=== PATIENT | female | born 1945 | race Caucasian/White ===

== ENCOUNTER 2019-04-22 10:14 | Outpatient (REF) | payer MEDICARE, MEDICAID, SELFPAY ==
[2019-04-22 22:28] LABS: ALT 19 U/L (12-78); AST 14 U/L (15-37); Albumin 3.6 g/dL (3.4-5.0); Alkaline Phosphatase 92 U/L (46-116); Anion Gap 7.6 mmol/L (3-11); BUN 20 mg/dL (7-18); Bilirubin, Total 0.3 mg/dL (0.2-1.0); CO2 31.4 mmol/L (21.0-32.0); CREATININE 0.71 mg/dL (0.55-1.02); Calcium 9.2 mg/dL (8.5-10.1); Calculated LDL 205; Chloride 105 mmol/L (98-107); Cholesterol 281 mg/dL (50-200); Glucose 98 mg/dL (70-100); HDL Cholesterol 46 mg/dL (40-60); Potassium 4.2 mmol/L (3.5-5.1); Sodium 144 mmol/L (136-145); TSH (W/Ref FT4) 0.49 uIU/mL (0.358-3.74); Total Protein 6.9 g/dL (6.4-8.2); Triglyceride 154 mg/dL (30-150)
[2019-04-22 22:45] LABS: Hemoglobin A1C 6.2 % (4.5-6.2)
== END 2019-04-22 10:34 ==
LOC: NCHCN 10:14
PROVIDERS: PCP Family Medicine; Visit Provider Family Medicine
DX: E03.9 Hypothyroidism, unspecified (principal); R73.09 Other abnormal glucose; E78.2 Mixed hyperlipidemia
CPT/HCPCS: 80053; 80061; 83721; 83036; 84443

== ENCOUNTER 2019-09-30 10:34 | Outpatient (REF) | payer MEDICARE, MEDICAID, SELFPAY | END 2019-09-30 10:54 | LOC: NCHCN 10:34 | PROVIDERS: PCP Family Medicine; Visit Provider Nurse Practitioner Family | DX: L03.012 Cellulitis of left finger (principal) | CPT/HCPCS: 87077; 87070; 87186; 87205 ==

== ENCOUNTER 2020-04-20 21:28 | Outpatient (REF) | payer MEDICARE, MEDICAID, SELFPAY ==
[2020-04-20 22:09] LABS: ALT 22 U/L (14-59); AST 15 U/L (15-37); Albumin 3.9 g/dL (3.4-5.0); Alkaline Phosphatase 74 U/L (46-116); BUN 25 mg/dL (7-18); Bilirubin, Total 0.4 mg/dL (0.2-1.0); Calculated LDL 89 mg/dL (<100); Chloride 103 mmol/L (98-107); Cholesterol 160 mg/dL (<200); Glucose 90 mg/dL (74-106); HDL Cholesterol 48 mg/dL (40-60); Potassium 3.8 mmol/L (3.5-5.1); Sodium 138 mmol/L (136-145); TSH (W/Ref FT4) 0.19 uIU/mL (0.36-3.74); Total Protein 6.9 g/dL (6.4-8.2); Triglyceride 116 mg/dL (<150)
[2020-04-20 22:10] LABS: Hemoglobin A1C 6.1 % (3.8-5.6)
[2020-04-20 22:26] LABS: FREE T4 0.91 ng/dL (0.76-1.46)
== END 2020-04-20 21:48 ==
LOC: NCHCN 21:28
PROVIDERS: PCP Family Medicine; Visit Provider Family Medicine
DX: E03.9 Hypothyroidism, unspecified (principal); E78.2 Mixed hyperlipidemia; R73.03 Prediabetes
CPT/HCPCS: 80053; 80061; 83036; 84439; 84443

== ENCOUNTER 2020-04-26 14:03 | Outpatient (REF) | payer MEDICARE, MEDICAID, SELFPAY ==
[2020-04-26 21:54] LABS: T4 8.3 ug/mL (4.7-13.3); TSH 0.12 uIU/mL (0.36-3.74)
[2020-04-27 17:43] LABS: T3, Total 150 ng/dL (97-169)
[2020-04-28 09:51] LABS: Thyroglobulin Antibody <15 U/mL (<=60); Thyroperoxidase Antibody <28 U/mL (<=60)
== END 2020-04-26 14:23 ==
LOC: NCHCN 14:03
PROVIDERS: PCP Family Medicine; Visit Provider Family Medicine
DX: E05.90 Thyrotoxicosis, unspecified without thyrotoxic crisis or storm (principal)
CPT/HCPCS: 86376; 84436; 84443; 84480

== ENCOUNTER 2020-08-13 16:37 | Outpatient (REF) | payer MEDICARE, MEDICAID, SELFPAY ==
[2020-08-13 21:34] LABS: TSH (W/Ref FT4) 0.29 uIU/mL (0.36-3.74)
[2020-08-13 22:10] LABS: Hemoglobin A1C 5.9 % (<5.7)
[2020-08-13 22:17] LABS: FREE T4 0.91 ng/dL (0.76-1.46)
== END 2020-08-13 16:57 ==
LOC: NCHCN 16:37
PROVIDERS: PCP Family Medicine; Visit Provider Family Medicine
DX: E05.90 Thyrotoxicosis, unspecified without thyrotoxic crisis or storm (principal); R73.03 Prediabetes
CPT/HCPCS: 83036; 84439; 84443

== ENCOUNTER 2020-09-07 16:10 | Outpatient (REF) | payer MEDICARE, MEDICAID, SELFPAY ==
[2020-09-08 20:06] LABS: T3,Free 3.1 pg/mL (2.8-5.3)
[2020-09-09 13:36] LABS: Thyrotropin Receptor Ab <1.00 IU/L
== END 2020-09-07 16:30 ==
LOC: NCHCN 16:10
PROVIDERS: PCP Family Medicine; Visit Provider Family Medicine
DX: E05.90 Thyrotoxicosis, unspecified without thyrotoxic crisis or storm (principal)
CPT/HCPCS: 84235; 84481

== ENCOUNTER 2021-02-10 20:26 | Outpatient (REF) | payer MEDICARE, MEDICAID, SELFPAY ==
[2021-02-10 21:12] LABS: FREE T4 0.84 ng/dL (0.76-1.46); TSH 0.23 uIU/mL (0.36-3.74)
[2021-02-11 17:14] LABS: T3, Total 129 ng/dL (97-169)
[2021-02-22 15:38] LABS: Thyroid Stimulating Immunoglob <1.0 TSI index (<=1.3)
== END 2021-02-10 20:27 | disposition home or self-care (01) ==
LOC: NCHCN 20:26
PROVIDERS: PCP Family Medicine; Visit Provider Internal Medicine Endocrinology, Diabetes & Metabolism
DX: E05.90 Thyrotoxicosis, unspecified without thyrotoxic crisis or storm (principal)
CPT/HCPCS: 84439; 84443; 84445; 84480

== ENCOUNTER 2021-07-14 17:29 | Outpatient (REF) | payer MEDICARE, MEDICAID, SELFPAY ==
[2021-07-14 21:04] LABS: Hemoglobin A1C 6.2 % (<5.7)
[2021-07-14 21:05] LABS: ALT 23 U/L (14-59); AST 18 U/L (15-37); Albumin 4.1 g/dL (3.4-5.0); Alkaline Phosphatase 84 U/L (46-116); Anion Gap 8.4 mmol/L (3-11); BUN 19 mg/dL (7-18); Bilirubin, Total 0.3 mg/dL (0.2-1.0); CO2 28.6 mmol/L (21.0-32.0); CREATININE 0.7 mg/dL (0.55-1.02); Calcium 9.5 mg/dL (8.5-10.1); Calculated LDL 109 mg/dL (<100); Chloride 105 mmol/L (98-107); Cholesterol 181 mg/dL (<200); Glucose 87 mg/dL (74-106); HDL Cholesterol 49 mg/dL (40-60); Potassium 4.5 mmol/L (3.5-5.1); Sodium 142 mmol/L (136-145); TSH (W/Ref FT4) 0.35 uIU/mL (0.36-3.74); Total Protein 7.1 g/dL (6.4-8.2); Triglyceride 119 mg/dL (<150)
== END 2021-07-14 17:30 | disposition home or self-care (01) ==
LOC: NCHCN 17:29
PROVIDERS: PCP Family Medicine; Visit Provider Family Medicine
DX: Z00.00 Encounter for general adult medical examination without abnormal findings (principal); E05.90 Thyrotoxicosis, unspecified without thyrotoxic crisis or storm; R73.03 Prediabetes; E78.2 Mixed hyperlipidemia
CPT/HCPCS: 80053; 80061; 83036; 84439; 84443

== ENCOUNTER 2022-09-05 18:11 | Outpatient (REF) | payer MEDICARE, MEDICAID, SELFPAY ==
[2022-09-05 20:15] LABS: Hemoglobin A1C 6.3 % (<5.7)
[2022-09-05 20:24] LABS: ALT 29 U/L (14-59); AST 20 U/L (15-37); Albumin 3.8 g/dL (3.4-5.0); Alkaline Phosphatase 77 U/L (46-116); BUN 21 mg/dL (7-18); Bilirubin, Total 0.3 mg/dL (0.2-1.0); CREATININE 0.6 mg/dL (0.55-1.02); Calcium 9.2 mg/dL (8.5-10.1); Calculated LDL 115 mg/dL (<100); Chloride 105 mmol/L (98-107); Cholesterol 200 mg/dL (<200); Estimated GFR 92.39 (mL/min/1.73m2); Glucose 83 mg/dL (74-106); HDL Cholesterol 60 mg/dL (40-60); Potassium 3.8 mmol/L (3.5-5.1); Sodium 141 mmol/L (136-145); Total Protein 7.3 g/dL (6.4-8.2); Triglyceride 128 mg/dL (<150)
== END 2022-09-05 18:12 | disposition home or self-care (01) ==
LOC: NCHCN 18:11
PROVIDERS: PCP Family Medicine; Visit Provider Family Medicine
DX: R73.03 Prediabetes (principal); E78.2 Mixed hyperlipidemia
CPT/HCPCS: 80053; 80061; 83036

== ENCOUNTER 2023-09-12 19:17 | Outpatient (REF) | payer MEDICARE, MEDICAID, SELFPAY ==
[2023-09-12 19:31] LABS: ALT 19 U/L (14-59); AST 15 U/L (15-37); Albumin 3.7 g/dL (3.4-5.0); Alkaline Phosphatase 76 U/L (46-116); Anion Gap 8.1 mmol/L (3-11); BUN 21 mg/dL (7-18); Bilirubin, Total 0.2 mg/dL (0.2-1.0); CO2 28.9 mmol/L (21.0-32.0); CREATININE 0.9 mg/dL (0.55-1.02); Calcium 9.2 mg/dL (8.5-10.1); Calculated LDL 122 mg/dL (<100); Chloride 104 mmol/L (98-107); Cholesterol 184 mg/dL (<200); Estimated GFR 65.44 (mL/min/1.73m2); Glucose 115 mg/dL (74-106); HDL Cholesterol 49 mg/dL (40-60); Potassium 3.9 mmol/L (3.5-5.1); Sodium 141 mmol/L (136-145); TSH (W/Ref FT4) 0.74 uIU/mL (0.36-3.74); Total Protein 6.8 g/dL (6.4-8.2); Triglyceride 68 mg/dL (<150)
[2023-09-12 20:05] LABS: Hemoglobin A1C 5.9 % (<5.7)
== END 2023-09-12 19:18 | disposition home or self-care (01) ==
LOC: NCHCN 19:17
PROVIDERS: PCP Family Medicine; Visit Provider Family Medicine
DX: E05.90 Thyrotoxicosis, unspecified without thyrotoxic crisis or storm (principal); R73.03 Prediabetes; E78.2 Mixed hyperlipidemia
CPT/HCPCS: 80053; 80061; 83036; 84443

== ENCOUNTER 2024-10-02 15:09 | Outpatient (REF) | payer MEDICARE, MEDICAID, SELFPAY ==
[2024-10-02 15:39] LABS: ALT 19 U/L (14-59); AST 16 U/L (15-37); Albumin 3.7 g/dL (3.4-5.0); Alkaline Phosphatase 61 U/L (46-116); Anion Gap 7.3 mmol/L (3-11); BUN 19 mg/dL (7-18); CO2 31.7 mmol/L (21.0-32.0); CREATININE 0.8 mg/dL (0.55-1.02); Calcium 9.7 mg/dL (8.5-10.1); Calculated LDL 141 mg/dL (<100); Chloride 106 mmol/L (98-107); Cholesterol 219 mg/dL (<200); Glucose 88 mg/dL (74-106); HDL Cholesterol 59 mg/dL (40-60); Sodium 145 mmol/L (136-145); Total Protein 7.1 g/dL (6.4-8.2); Triglyceride 96 mg/dL (<150)
[2024-10-02 16:36] LABS: Hemoglobin A1C 6.1 % (<5.7)
== END 2024-10-02 15:10 | disposition home or self-care (01) ==
LOC: NCHCN 15:09
PROVIDERS: PCP Family Medicine; Visit Provider Family Medicine
DX: E78.2 Mixed hyperlipidemia (principal); R73.03 Prediabetes
CPT/HCPCS: 80053; 80061; 83036

== ENCOUNTER 2025-10-16 10:27 | Outpatient (REF) | payer MEDICARE, MEDICAID, SELFPAY ==
[2025-10-16 14:59] LABS: Hemoglobin A1C 6.0 % (<5.7)
[2025-10-16 15:01] LABS: ALT 15 U/L (10-49); AST 19 U/L (<34); Albumin 4.1 g/dL (3.2-5.0); Alkaline Phosphatase 53 U/L (46-116); Anion Gap 7.7 mmol/L (3-11); BUN 22 mg/dL (9-23); Bilirubin, Total 0.30 mg/dL (0.2-1.2); CO2 29.3 mmol/L (20.0-31.0); Calcium 8.7 mg/dL (8.3-10.6); Chloride 108 mmol/L (98-107); Cholesterol 165 mg/dL (<200); Glucose 85 mg/dL (74-106); HDL Cholesterol 48 mg/dL (>40); Potassium 3.7 mmol/L (3.5-5.1); Sodium 145 mmol/L (136-145); Total Protein 6.5 g/dL (5.7-8.2)
== END 2025-10-16 10:28 | disposition home or self-care (01) ==
LOC: NCHCN 10:27
PROVIDERS: PCP Family Medicine; Visit Provider Family Medicine
DX: E78.2 Mixed hyperlipidemia (principal); R73.03 Prediabetes
CPT/HCPCS: 80053; 80061; 83036